=== PATIENT | male | born 1990 | race Two or more races ===

== ENCOUNTER 2020-08-08 03:19 | Emergency (ER) | payer MEDICAID ==
[~2020-08-08] VITALS: Ht 172.7 cm; Wt 77.1 kg
[2020-08-08 03:38] VITALS: BP 130/81
--- NOTE | 2020-08-08 04:20 | NUR ---
Patient discharged to home in stable condition. Written and verbal after care instructions given. Patient verbalizes understanding of instruction.
== END 2020-08-08 04:57 | disposition home or self-care (01) ==
LOC: ER 03:21
DX: S01.81XA Laceration without foreign body of other part of head, initial encounter (principal); W22.8XXA Striking against or struck by other objects, initial encounter; Y93.89 Activity, other specified; Y92.89 Other specified places as the place of occurrence of the external cause; Y99.8 Other external cause status